=== PATIENT | male | born 1985 | race Asian ===

== ENCOUNTER 2019-04-06 14:40 | Emergency (ER) | payer MEDICAID ==
[~2019-04-06] VITALS: Ht 167.6 cm; Wt 83.5 kg
[2019-04-06 14:53] VITALS: BP 123/69; Ht 167.6 cm; Wt 83.5 kg
== END 2019-04-06 16:05 | disposition home or self-care (01) ==
LOC: ED 14:40
DX: B37.0 Candidal stomatitis (principal); K02.9 Dental caries, unspecified